=== PATIENT | female | born 1980 | race African-American/Black ===

== ENCOUNTER 2016-11-20 06:22 | Emergency (ER) | payer SELFPAY ==
[~2016-11-20 06:22] MED LIST: ACETAMINOPHEN-C1 TA PO; BIOTIN; FLAGYL250 MG PO; NO HOME MEDS; PEN-VEE K500 MG PO; PRENATAL1 TAB; TYLENOL #31 TA1 PO; ZANTAC 7575 MG
[2016-11-20] MEDS ORDERED: NO HOME MEDICATION XX (06:31)
[2016-11-20 07:08] LABS: BASO % 0.2 % (0-2); EOS % 2.7 % (0-7); EOSINOPHIL ABSOLUTE COUNT 0.2 tho/cmm (0.0-0.7); HCT-HEMATOCRIT 34.8 % (34.0-49.0); HGB-HEMOGLOBIN 11.2 gm/dl (12.0-15.5); LYMPH % 51.4 % (20-45); LYMPH ABSOLUTE COUNT 2.8 tho/cmm (0.8-4.5); MCH (MEAN CORPUSCULAR HGB) 26.7 pg (28.0-32.0); MCHC MEAN CORPUSCULAR HGB CONC 32.2 % (32.0-36.0); MCV (MEAN CELL VOLUME) 82.9 fl (82.0-96.0); MEAN PLATELET VOLUME 10.2 cmc (9.4-12.4); MONO % 5.2 % (0-12); MONOCYTE ABSOLUTE COUNT 0.3 tho/cmm (0.0-1.2); NEUTROPHIL ABSOLUTE COUNT 2.2 tho/cmm (1.6-8.0); NEUTROPHIL-AUTOMATED 2.2 tho/cmm (1.6-8.0); NEUTROPHILS % 40.5 % (40-80); PLATELET COUNT 258 tho/cmm (150-450); RED CELL DISTRIBUTION WIDTH 14.4 % (12.4-16.4); WHITE BLOOD COUNT 5.5 tho/cmm (4.0-10.0)
[2016-11-20 08:44] LABS: URINE BILIRUBIN NEGATIVE (NEG); URINE BLOOD NEGATIVE (NEG); URINE GLUCOSE (UA) NEGATIVE (NEG); URINE KETONE NEGATIVE (NEG); URINE LEUKOCYTE ESTERASE POSITIVE (NEG); URINE NITRITE NEGATIVE (NEG); URINE PROTEIN NEGATIVE (NEG); URINE SPECIFIC GRAVITY 1.005 (1.003-1.030)
[2016-11-20 08:45] LABS: URINE APPEARANCE CLEAR; URINE COLOR PALE YELLOW
[2016-11-20 08:53] LABS: URINE RBC RARE /[HPF] (0-5)
[2016-11-20 08:54] LABS: URINE BACTERIA 1+
[2016-11-20] MEDS ORDERED: BACTRIM DS TAB1 EAC2 PO (08:57)
== END 2016-11-20 09:00 ==
LOC: EDMED 06:22
PROVIDERS: Emergency Medicine
DX: N39.0 Urinary tract infection, site not specified (principal); N93.8 Other specified abnormal uterine and vaginal bleeding
CPT/HCPCS: P9612